=== PATIENT | female | born 1975 | race Hispanic/Latino ===

== ENCOUNTER 2017-01-27 00:40 | Observation (INO) | payer OTHER ==
[2017-01-27] MEDS ORDERED: TDAP Vaccine 0.5 mL Syr IM ONE (00:43)
--- NOTE | 2017-01-27 00:47 | ED PDOC ---
Arrival/HPI - General Time Seen by Provider: 01/27/17 00:43 Historian: Patient, EMS - History of Present Illness Narrative History of Present Illness (Text): 01/27/17 00:40 Patient found outside by EMS presents with slurring of speech and alcohol on breath. Admits to drinking throughout the day. Pt denies suicidal or homicidal ideations. Patient sustained a laceration above left eyebrow. Time/Duration: Other (tonight) Symptom Onset: Gradual Symptom Course: Unchanged Activities at Onset: Rest, Light Context: Street Past Medical History - Provider Review Nursing Documentation Reviewed: Yes Family/Social History - Physician Review Nursing Documentation Reviewed: Yes Family/Social History: Unknown Family HX Allergies/Home Meds Allergies/Adverse Reactions: Allergies No Known Allergies Allergy (Verified 01/27/17 00:50) Home Medications: Home Meds Medication Instructions Recorded Confirmed Unobtainable 01/27/17 01/27/17 Review of Systems - Review of Systems Systems not reviewed;Unavailable: Intoxicated Physical Exam - Physical Exam Narrative Physical Exam (Text): Patient is in no distress, no airway compromise, breathing without difficulty, good insp/exp effort. No signs of torso/extremity trauma. Combative Head: Present: 1 cm horizontal laceration above left eyebrow, no active bleeding , ~3mm in depth. Normocephalic. No: Tenderness, Contusion, Swelling, Ecchymosis , Abrasion Pupils: Present: PERRL Extroacular Muscles: Present: EOMI Conjunctiva: Present: Normal Mouth: Present: Moist Mucous Membranes Neck: Present: Normal Range of Motion. No: MIDLINE TENDERNESS, Paraspinal Tenderness Respiratory/Chest: Present: Clear to Auscultation, Good Air Exchange. No: Respiratory Distress, Accessory Muscle Use Cardiovascular: Present: Regular Rate and Rhythm, Normal S1, S2. No: Murmurs Abdomen: Present: Normal Bowel Sounds. No: Tenderness, Distention, Peritoneal Signs, Rebound, Guarding Back: Present: Normal Inspection. No: Midline Tenderness, Paraspinal Tenderness Upper Extremity: Present: Normal Inspection. No: Cyanosis, Edema Lower Extremity: Present: Normal Inspection. No: Edema Neurological: Present: GCS=15, CN II-XII Intact Skin: Present: Warm, Dry, Normal Color. No: Rashes Lymphatic: Present: OX3, NI, NC Psychiatric: Present: Alert, combative. Absent: suicidal/homicidal ideations Vital Signs Reviewed: Yes Vital Signs Temp Pulse Resp BP Pulse Ox 01/27/17 01:09 98.9 F 119 H 18 147/96 H 96 Temperature: Afebrile Blood Pressure: Normal Pulse: Regular Respiratory Rate: Normal Appearance: Positive for: Non-Toxic Pain Distress: None Mental Status: Positive for: Agitated (Combative) Medical Decision Making ED Course and Treatment: 01/27/17 00:40 - Medication Orders Current Medication Orders: Discontinued Medications Lidocaine/Epinephrine (Xylocaine 1% W Epi 1:100,000 Inj) 50 ml IJ ONCE ONE Stop: 01/27/17 03:52 Last Admin: 01/27/17 04:00 Dose: 50 ml Comments: To be administered by Dr. Nieto Tetanus/Reduced Diphtheria/Acell Pertussis (Boostrix Vaccine Inj) 0.5 ml IM .ONCE ONE Stop: 01/27/17 00:44 Last Admin: 01/27/17 01:34 Dose: 0.5 ml ED OBSERVATION Discharge: Yes Date of observation admission: 01/27/17 Time of observation admission: 00:44 - Observation admission statement Patient is being placed in observation because:: alcohol intoxication - Goals of Observation Goals of observation are:: sobriety - Progress Note Progress Note: 01/27/17 00:44 Impression: Female, with unknown identity, presented for alcohol intoxication. On exam, pt has 1 cm horizontal laceration above left eyebrow, no active bleeding, ~3mm in depth, alcohol on breath. Differential Diagnosis included but are not limited to: alcohol intoxication vs. laceration Plan: -- CT Head w/o contrast -- Tetanus vaccination -- Reassess and disposition Progress Notes: Pt combative, danger to self and staff, medication ordered to calm pt down. 01/27/17 02:44 Pt sleeping currently, in no acute distress. Pending CT scan. 01/27/17 03:38 CT Head shows: Dictated and Authenticated by: Jamel Antoine MD Brain: No acute hemorrhage. No acute infarct. Mild volume loss. Ventricles: No hydrocephalus. Bones/joints: No acute fracture. Soft tissues: Unremarkable. Sinuses: Mild ethmoid and maxillary sinus mucosal thickening. No fluid levels. Mastoid air cells: Unremarkable as visualized. No mastoid effusion. Orbits: Left periorbital contusion No intraorbital abnormality. IMPRESSION: Left periorbital contusion. No acute intracranial abnormality. 01/27/17 04:10 PROCEDURE: LACERATION REPAIR Performed by the emergency provider Location: Above left eyebrow Length: 1 cm Description: Horizontal, clean wound edges, no foreign bodies Distal CMS: Normal. No deficits. Neurovascularly intact. Anesthesia: Lidocaine 1% Preparation: The wound was cleaned with NS and Betadyne. The area was prepped and draped in the usual sterile fashion. Exploration: The wound was explored and no foreign bodies were found. Procedure: The wound was closed with 5-0 dissolvable vicryl. There was good approximation. In total, 2 stitches were used. Post-Procedure: Good closure and hemostasis. The patient tolerated the procedure well. CSM remains intact. Post procedure dressing applied. 01/27/17 06:55 Pt has been closely monitored throughout the stay in the ED. Currently pt is ANOx3 to person, place, and time. Has good insight and judgment. Denies suicidal or homicidal ideations. Pt has steady gait, ambulates without difficulty, not slurring speech. Pt able to tolerate PO without any difficulty. Patient denies any complaints at this time. Patient is not tremulous, not tachycardic, no signs or symptoms of alcohol withdrawal. Pt states she understands to return to the ER right away for new or worsening symptoms or for inability to f/u with PMD or specialist as instructed. Patient states that she fully agrees with and understands discharge instructions. States that she agrees with the plan and disposition. Verbalized and repeated discharge instructions and plan. I have given the patient opportunity to ask any additional questions. - Scribe Statement The provider has reviewed the documentation as recorded by the Herb Lord Provider Scribe Attestation: All medical record entries made by the Scribshoaib were at my direction and personally dictated by me. I have reviewed the chart and agree that the record accurately reflects my personal performance of the history, physical exam, medical decision making, and the department course for this patient. I have also personally directed, reviewed, and agree with the discharge instructions and disposition. Disposition/Present on Arrival - Present on Arrival Any Indicators Present on Arrival: No - Disposition Have Diagnosis and Disposition been Completed?: Yes Diagnosis: Alcohol intoxication Disposition: HOME/ ROUTINE Disposition Time: 00:44 Patient Plan: Discharge Condition: GOOD
[2017-01-27 01:16] VITALS: TEMP 98.9
[2017-01-27] MEDS ORDERED: Lidocaine 1% w Epi 1:100,000 Inj IJ ONE (03:51)
[2017-01-27 07:18] VITALS: BP 110/53; PULSE 65; RESP 17; O2SAT 98
--- NOTE | 2017-01-27 09:51 | CT ---
PROCEDURE: CT HEAD WITHOUT CONTRAST. HISTORY: trauma/fall COMPARISON: None available. TECHNIQUE: Axial computed tomography images were obtained through the head/brain without intravenous contrast. Radiation dose: Total exam DLP = 711 mGy-cm. This CT exam was performed using one or more of the following dose reduction techniques: Automated exposure control, adjustment of the mA and/or kV according to patient size, and/or use of iterative reconstruction technique. FINDINGS: HEMORRHAGE: No intracranial hemorrhage. BRAIN: No mass effect or edema. No atrophy or chronic microvascular ischemic changes. VENTRICLES: Unremarkable. No hydrocephalus. CALVARIUM: Unremarkable. PARANASAL SINUSES: Unremarkable as visualized. No significant inflammatory changes. There is some soft tissue swelling lateral to the left orbit MASTOID AIR CELLS: Unremarkable as visualized. No inflammatory changes. OTHER FINDINGS: The report concurs with the preliminary [facility] report IMPRESSION: No acute intracranial findings
[2017-01-27 12:14] LABS: HEPATITIS B SURFACE AG NEGATIVE (NEGATIVE)
[2017-01-27 12:20] LABS: HEPATITIS A IGM NEGATIVE (NEGATIVE); HEPATITIS B CORE AB NEGATIVE (NEGATIVE)
[2017-01-27 12:32] LABS: HEPATITIS C ANTIBODY NEGATIVE (NEGATIVE)
== END 2017-01-27 06:56 | disposition home or self-care (01) ==
LOC: ED 00:40 → EDBD 00:44 → EROBSV 00:44
PROVIDERS: ADMIT Emergency Medicine; ATTEND Emergency Medicine
DX: F10.129 Alcohol abuse with intoxication, unspecified (principal); S01.112A Laceration without foreign body of left eyelid and periocular area, initial encounter; X58.XXXA Exposure to other specified factors, initial encounter; Y93.9 Activity, unspecified; Y92.9 Unspecified place or not applicable; Z23 Encounter for immunization
CPT/HCPCS: 12011; 36415; 70450; 80074; 87390; 90471; 90715; 99283; G0378